=== PATIENT | female | born 1950 | race Hispanic/Latino ===

== ENCOUNTER 2019-01-06 10:23 | Outpatient (CLI) | payer OTHER | END 2019-01-06 10:24 | disposition home or self-care (01) | LOC: C.LAB 10:23 | DX: E04.1 Nontoxic single thyroid nodule (principal) ==

== ENCOUNTER 2019-01-13 09:24 | Outpatient (CLI) | payer OTHER | END 2019-01-13 09:25 | disposition home or self-care (01) | LOC: C.LAB 09:24 ==

== ENCOUNTER 2019-03-15 15:25 | Outpatient (CLI) | payer OTHER | END 2019-03-15 15:26 | disposition home or self-care (01) | LOC: C.USIC 15:25 | DX: E04.1 Nontoxic single thyroid nodule (principal) ==